=== PATIENT | male | born 1970 | race Caucasian/White ===

== ENCOUNTER → 2016-09-04 | Outpatient (CLI) | payer OTHER ==
--- NOTE | 2016-09-04 15:16 | DX ---
3 Views Right Foot: Reason for examination: Pain and swelling at the base of the second toe in a 46-year-old male with a history of probable trauma. Findings: A fracture is not identified. The bone alignment is normal. Soft tissue swelling is noted i nvolving the second toe. There is a well-circumscribed lucency with no associated osseous erosion at the proximal aspect of the proximal phalanx of the second toe. Additionally, benign-appearing lucenci es are seen involving the distal end of the fifth metatarsal. These are probably cysts. Impression: 1. Negative for fracture. If symptoms persist, MRI could be considered for further evaluation. 2. Benign-appearing osseous lucencies are probably cystic change. Findings discussed with [facility].
== END ==
LOC: BMCIMAGING 14:32
PROVIDERS: ATTEND Emergency Medicine
DX: M79.671 Pain in right foot (principal); M79.89 Other specified soft tissue disorders; R93.8 Abnormal findings on diagnostic imaging of other specified body structures